=== PATIENT | female | born 1985 | race Caucasian/White ===

== ENCOUNTER 2016-08-15 10:44 | Day surgery (SDC) | payer OTHER ==
[~2016-08-15] VITALS: Ht 160 cm; Wt 81.7 kg
[~2016-08-15 10:44] MED LIST: CONZIP100 MG PO; IBUPROFEN200 M1 PO; MOTRIN800 MG PO; PEN-VEE K,VEET500 MG PO; TRAMADOL HCL50 MG PO; TYLENOL EXTRA500 MG PO; ULTRAM50 MG PO
== END 2016-08-15 13:15 | disposition home or self-care (01) ==
LOC: PAIN 10:44 → SDC 11:15 → PAIN 13:15
DX: M47.816 Spondylosis without myelopathy or radiculopathy, lumbar region (principal); M79.7 Fibromyalgia; E66.9 Obesity, unspecified; K59.00 Constipation, unspecified; Z79.891 Long term (current) use of opiate analgesic; Z88.0 Allergy status to penicillin; F17.210 Nicotine dependence, cigarettes, uncomplicated
CPT/HCPCS: J1030; J2250; J3010; S0020

== ENCOUNTER 2016-08-24 08:27 | Day surgery (SDC) | payer OTHER ==
[~2016-08-24] VITALS: Ht 160 cm; Wt 81.6 kg
[~2016-08-24 08:27] MED LIST changes: +FLONASE ALLERG9.9 ML BOTH NARES; +PROBIOTIC1 EAC1 PO; +TYLENOL ARTHRI650 MG PO; +VALTREX1000 MG PO
== END 2016-08-24 10:54 | disposition home or self-care (01) ==
LOC: PAIN 08:27 → SDC 09:00 → PAIN 09:00
DX: M47.816 Spondylosis without myelopathy or radiculopathy, lumbar region (principal); M54.2 Cervicalgia; E66.9 Obesity, unspecified; M79.7 Fibromyalgia; F17.210 Nicotine dependence, cigarettes, uncomplicated; Z79.891 Long term (current) use of opiate analgesic
CPT/HCPCS: J1030; J1885; J2250; J3010; S0020